=== PATIENT | female | born 1955 | race Caucasian/White ===

== ENCOUNTER 2019-04-13 12:31 | Outpatient (RCR) | payer MEDICAID, SELFPAY ==
[2019-04-13 12:35] LABS: Add Urine Microscopic? NO
[2019-04-13 13:15] LABS: Bilirubin Urine Neg (NEGATIVE); Blood Urine Neg (Negative); Glucose Urine UA 4+ (Normal); Ketones Urine Negative (Negative); Leukocyte Esterase Urine Negative (Negative); Nitrate Urine Negative (Negative); Protein Urine Neg (Negative); Urine Appearance Clear (CLEAR); Urine Color Yellow (Yellow); Urobilinogen Urine Norm (Negative); pH Urine 5 (5-7)
== END 2019-04-24 23:59 | disposition home or self-care (01) ==
LOC: LAB 12:31
PROVIDERS: Family Provider Family Medicine; Visit Provider Dermatology
DX: D64.9 Anemia, unspecified (principal)
CPT/HCPCS: 81003; 87086